=== PATIENT | male | born 1955 | race Caucasian/White ===

== ENCOUNTER 2020-06-28 15:56 | Outpatient (CLI) | payer BC ==
--- NOTE | 2020-06-28 16:24 | RAD ---
CHEST TWO VIEWS: 06/28/20 INDICATIONS: History of pneumonia and cough. COMPARISON: Prior exam dated 09/04/13. FINDINGS: There are patchy areas of peripheral ground glass air space opacities seen predominantly within the m id lungs and both lower lobes suspicious for pneumonia. No pleural effusions. Heart size is normal. T here is healed fracture deformity involving the left posterior fifth and sixth ribs. There is postsur gical change of a right rotator cuff tear. There is mild spondylosis of the thoracic spine. There is surgical clips within the right upper quadrant consistent with prior cholecystectomy. IMPRESSION: Peripheral air space opacities within normal lungs are suspicious for bilateral pneumonia that can be seen with COVID-19. POS: [facility]
== END 2020-06-28 15:57 | disposition home or self-care (01) ==
LOC: BICRAD 15:56
PROVIDERS: ATTEND Family Medicine
DX: J18.9 Pneumonia, unspecified organism (principal); R91.8 Other nonspecific abnormal finding of lung field
CPT/HCPCS: 36415; 71046; 80053; 83615; 84484; 85025; 85379; 86140; 86664; 86665